=== PATIENT | female | born 2000 | race Two or more races ===

== ENCOUNTER 2024-05-19 21:00 | Inpatient (IN) | payer MEDICAID ==
[~2024-05-19] VITALS: Ht 167.6 cm; Wt 78.9 kg
[2024-05-19] MEDS ORDERED: ONDANSETRON HCL 4 MG/2 ML VIAL IV PRN (21:15)
[2024-05-19] MEDS ORDERED: BUTORPHANOL TARTRATE 2 MG/1 ML VIAL IV PRN (21:15)
[2024-05-19 21:39] LABS: Urine Bacteria None Seen /hpf (None Seen)
[2024-05-19 21:45] LABS: Basophils # (auto) 0 10 ^3/uL (0-0.2); Basophils % (auto) 0.4 % (0.0-2.0); Eosinophils # (auto) 0.1 10 ^3/uL (0-0.8); Eosinophils % (auto) 0.7 % (0.0-7.0); Hematocrit 35.4 % (36.0-46.0); Hemoglobin 12.2 g/dL (12.2-16.2); Lymphocytes # (auto) 1.6 10 ^3/uL (0.4-5.4); Lymphocytes % (auto) 18.9 % (10.0-50.0); Mean Corpuscular Hemoglobin 32.8 pg (28.0-32.0); Mean Corpuscular Hgb Conc. 34.4 g/dL (32.0-36.0); Mean Corpuscular Volume 95.5 fL (80.0-100.0); Monocytes # (auto) 0.5 10 ^3/uL (0-1.3); Monocytes % (auto) 6.5 % (0.0-12.0); Neutrophils # (auto) 6.1 10 ^3/uL (1.6-8.6); Neutrophils % (auto) 73.5 % (37.0-80.0); White Blood Cell 8.3 10^3/uL (4.4-10.8)
[2024-05-19 21:47] LABS: Urine Blood Negative /uL (Negative); Urine Clarity Turbid (Clear); Urine Color Light-Yellow (Yellow); Urine Protein, UAD Negative (Negative); Urine Specific Gravity 1.015 (1.001-1.035); Urine Urobilinogen Normal (Negative); Urine WBC 20 /hpf (0 - 5); Urine pH 6.5 (5.0-9.0)
[2024-05-19 21:57] LABS: Amphetamine Screen, Urine Neg (NEGATIVE); Barbiturate Scree,Urine Neg (NEGATIVE); Benzodiazephine Screen, Urine Neg (NEGATIVE)
[2024-05-19 21:58] LABS: Cannabinoid Screen, Urine Neg (NEGATIVE); Cocaine Screen, Urine Neg (NEGATIVE); Opiate Scree,Urine Neg (NEGATIVE); Phencyclidine Screen, Urine Neg (NEGATIVE)
[2024-05-19 21:58] LABS: INR 0.9 (0.9-1.15); Partial Thromboplastin Time 25.8 SEC (24.5-34.5); Prothrombin Time 9.6 sec (9.3-11.8)
[2024-05-19 22:00] LABS: Alanine Aminotransferase 16 U/L (7-40); Albumin 3.9 g/dL (3.2-4.8); Alkaline Phosphatase 234 U/L (46-116); Anion Gap 7 (5-15); Aspartate Aminotransferase 19 U/L (13-40); BUN/Creatinine Ratio 15.9 (10.0-20.0); Blood Urea Nitrogen 11 mg/dL (9-23); Calcium 9.1 mg/dL (8.5-10.1); Carbon Dioxide 22 mmol/L (20-30); Chloride 106 mmol/L (98-107); Glucose 101 mg/dL (74-106); Potassium 3.7 mmol/L (3.5-5.1); Sodium 135 mmol/L (136-145)
[2024-05-19 22:01] LABS: Bilirubin, Total 0.3 mg/dL (0.2-1.0); Total Protein 6.3 g/dL (5.7-8.2)
[2024-05-19] MEDS: LACTATED RINGER'S 1,000 ML IV SCH (22:27)
[2024-05-20] MEDS: PHISODERM TOP SOLN 240ML BTL TOP PRN (00:44)
[2024-05-20] MEDS: WITCH HAZEL-GLYCERIN PAD TOP PRN (00:44)
[2024-05-20] MEDS: miSOPROStol 50 MCG per PRE-CUT 1/2 TAB PO PRN (00:44)
[2024-05-20] MEDS ORDERED: TERBUTALINE SULFATE 1 MG/ML 1ML VIAL SC PRN ×2 (00:45→07:45)
[2024-05-20] MEDS: LACT. RINGERS/OXYTOCIN 20UNITS 1,000 ML IV SCH (09:25)
[2024-05-20] MEDS: ACETAMINOPHEN 500 MG TAB PO ONE ×2 (15:50→22:43)
[2024-05-20] MEDS: BUTORPHANOL TARTRATE 2 MG/1 ML VIAL IV PRN (16:42)
[2024-05-20] MEDS: LACT. RINGERS/OXYTOCIN 20UNITS 500 ML IV ONE ×2 (19:20→20:00)
[2024-05-20 20:06] LABS: Basophils # (auto) 0 10 ^3/uL (0-0.2); Basophils % (auto) 0.2 % (0.0-2.0); Eosinophils # (auto) 0 10 ^3/uL (0-0.8); Hematocrit 32.6 % (36.0-46.0); Hemoglobin 10.9 g/dL (12.2-16.2); Lymphocytes # (auto) 0.7 10 ^3/uL (0.4-5.4); Lymphocytes % (auto) 5.8 % (10.0-50.0); Mean Corpuscular Hemoglobin 32.1 pg (28.0-32.0); Mean Corpuscular Hgb Conc. 33.4 g/dL (32.0-36.0); Monocytes # (auto) 0.3 10 ^3/uL (0-1.3); Monocytes % (auto) 2.6 % (0.0-12.0); Neutrophils # (auto) 11.6 10 ^3/uL (1.6-8.6); Neutrophils % (auto) 91.4 % (37.0-80.0); Nucleated Red Blood Cells % 0.1 %; Red Cell Distribution Width 13.8 % (11.8-14.3); White Blood Cell 12.6 10^3/uL (4.4-10.8)
[2024-05-20] MEDS ORDERED: ONDANSETRON ODT 4 MG TAB PO PRN (20:15)
[2024-05-20] MEDS: ONDANSETRON HCL 4 MG/2 ML VIAL ONE (20:28)
[2024-05-20] MEDS: CARBOPROST TROMETHAMINE 250 MCG/1ML VIAL IM ONE ×2 (20:29→22:43)
[2024-05-20] MEDS: DIPHENOXYLATE W/ATROPINE 2.5 MG TAB ONE (20:30)
[2024-05-20] MEDS: LIDOCAINE 2%HCL (LOCAL ANESTH.) INJ 20ML MDV IJ PRN (20:31)
[2024-05-20 23:00] VITALS: BP 106/59; PULSE 78; RESP 16; TEMP 98.3; O2SAT 98
[2024-05-20] MEDS: ACETAMINOPHEN 325 MG TAB PO PRN (23:43)
[2024-05-20] MEDS: DOCUSATE SOD 100 MG CAP PO SCH (23:43)
[2024-05-21 00:43] LABS: Basophils # (auto) 0 10 ^3/uL (0-0.2); Basophils % (auto) 0.1 % (0.0-2.0); Eosinophils # (auto) 0 10 ^3/uL (0-0.8); Hematocrit 29.5 % (36.0-46.0); Hemoglobin 9.8 g/dL (12.2-16.2); Lymphocytes # (auto) 1.1 10 ^3/uL (0.4-5.4); Lymphocytes % (auto) 7.1 % (10.0-50.0); Mean Corpuscular Hemoglobin 31.9 pg (28.0-32.0); Mean Corpuscular Hgb Conc. 33.2 g/dL (32.0-36.0); Mean Corpuscular Volume 96.2 fL (80.0-100.0); Monocytes # (auto) 0.8 10 ^3/uL (0-1.3); Monocytes % (auto) 5.2 % (0.0-12.0); Neutrophils # (auto) 13.9 10 ^3/uL (1.6-8.6); Neutrophils % (auto) 87.6 % (37.0-80.0); Red Blood Cells 3.07 10^6/uL (4.0-5.20); Red Cell Distribution Width 13.7 % (11.8-14.3); White Blood Cell 15.9 10^3/uL (4.4-10.8)
[2024-05-21] MEDS: AMMONIA 0.33 ML INHALANT IN ONE (01:27)
[2024-05-21] MEDS: DERMOPLAST 60ML BOTTLE TOP PRN (02:07)
[2024-05-21 02:58] VITALS: BP 97/53; PULSE 68; RESP 16; TEMP 98.9; O2SAT 98
[2024-05-21] MEDS: IBUPROFEN 600 MG TAB PO PRN (04:51)
[2024-05-21 06:37] LABS: Basophils # (auto) 0 10 ^3/uL (0-0.2); Eosinophils # (auto) 0 10 ^3/uL (0-0.8); Hemoglobin 8.3 g/dL (12.2-16.2)
[2024-05-21 06:40] LABS: Basophils % (auto) 0.2 % (0.0-2.0); Eosinophils % (auto) 0.2 % (0.0-7.0); Hematocrit 24.4 % (36.0-46.0); Lymphocytes # (auto) 1.6 10 ^3/uL (0.4-5.4); Lymphocytes % (auto) 12.5 % (10.0-50.0); Mean Corpuscular Hemoglobin 32.4 pg (28.0-32.0); Mean Corpuscular Hgb Conc. 33.9 g/dL (32.0-36.0); Mean Corpuscular Volume 95.7 fL (80.0-100.0); Monocytes # (auto) 1.2 10 ^3/uL (0-1.3); Monocytes % (auto) 9.4 % (0.0-12.0); Neutrophils # (auto) 9.9 10 ^3/uL (1.6-8.6); Neutrophils % (auto) 77.7 % (37.0-80.0); Red Blood Cells 2.55 10^6/uL (4.0-5.20); Red Cell Distribution Width 13.8 % (11.8-14.3); White Blood Cell 12.7 10^3/uL (4.4-10.8)
[2024-05-21 07:00] VITALS: BP 111/76; PULSE 74; RESP 18; TEMP 98; O2SAT 100
[2024-05-21 08:06] LABS: RPR Non Reactive (Non Reactive)
[2024-05-21 11:05] VITALS: BP 107/56; PULSE 89; RESP 16; TEMP 98.9; O2SAT 97
[2024-05-21] MEDS ORDERED: TRANEXAMIC ACID 1,000 mg/10ml INJ VIAL IV ONE (13:20)
[2024-05-21 15:20] VITALS: BP 97/49; PULSE 86; RESP 15; TEMP 98.3; O2SAT 97
[2024-05-21 19:00] VITALS: BP 121/61; PULSE 93; RESP 16; TEMP 98.7; O2SAT 98
[2024-05-21 23:00] VITALS: BP 101/79; PULSE 97; RESP 18; TEMP 98; O2SAT 98
[2024-05-22] MEDS ORDERED: ASCO500T11 PO (01:23)
[2024-05-22] MEDS ORDERED: FER325T PO (01:23)
[2024-05-22] MEDS ORDERED: PREN-96 PO (01:23)
[2024-05-22] MEDS ORDERED: DOCU-265 PO (01:23)
[2024-05-22] MEDS ORDERED: IBU600T PO (01:23)
[2024-05-22 03:00] VITALS: BP 120/76; PULSE 97; RESP 16; TEMP 98.2; O2SAT 98
[2024-05-22 07:00] VITALS: BP 128/69; PULSE 67; RESP 18; TEMP 98.6; O2SAT 98
[2024-05-22 08:51] VITALS: TEMP 37
[2024-05-22 18:06] LABS: Treponema pallidum Ab (FTA-Ab) Non Reactive (Non Reactive)
== END 2024-05-22 11:40 | disposition home or self-care (01) | DRG 560 ==
LOC: UNDOADMIN 21:00 → LDRP 21:00
PROVIDERS: ADMIT Obstetrics & Gynecology; ATTEND Obstetrics & Gynecology
PROC: 10E0XZZ Delivery of Products of Conception, External Approach (ICD-10-PCS; principal; 2024-05-20)
PROC: 0KQM0ZZ Repair Perineum Muscle, Open Approach (ICD-10-PCS; 2024-05-20)
PROC: 10907ZC Drainage of Amniotic Fluid, Therapeutic from Products of Conception, Via Natural or Artificial Opening (ICD-10-PCS; 2024-05-20)
PROC: 3E033VJ Introduction of Other Hormone into Peripheral Vein, Percutaneous Approach (ICD-10-PCS; 2024-05-20)
DX: O48.0 Post-term pregnancy (principal); Z37.0 Single live birth; D62 Acute posthemorrhagic anemia; O70.1 Second degree perineal laceration during delivery; Z3A.40 40 weeks gestation of pregnancy; O72.1 Other immediate postpartum hemorrhage; O90.81 Anemia of the puerperium
CPT/HCPCS: 36415; 59025; 59409; 80053; 80307; 81001; 85025; 85610; 85730; 86592; 86803; 86850; 86900; 86901; 94760; 94762; 96360; 96361; 96365; 96366; 96372; 96374; G0378; J2405; J2590; J7060